=== PATIENT | female | born 1980 | race American Indian/Alaskan Native ===

== ENCOUNTER 2018-08-23 07:28 | Day surgery (SDC) | payer OTHER | END 2018-08-23 20:15 | disposition home or self-care (01) | LOC: CIR.AMB 07:28 | DX: Z30.2 Encounter for sterilization (principal) ==

== ENCOUNTER 2019-07-09 09:15 | Day surgery (SDC) | payer OTHER | END 2019-07-09 19:30 | disposition home or self-care (01) | LOC: CIR.AMB 09:15 | DX: N84.1 Polyp of cervix uteri (principal); N72 Inflammatory disease of cervix uteri ==